=== PATIENT | male | born 1970 | race Caucasian/White ===

== ENCOUNTER → 2020-01-31 | Outpatient (CLI) | payer OTHER | LOC: M.ULTRA 09:45 | PROVIDERS: ATTEND Nurse Practitioner Family | DX: K62.3 Rectal prolapse (principal); N43.2 Other hydrocele ==

== ENCOUNTER → 2020-03-12 | Outpatient (CLI) | payer OTHER ==
[2020-03-12 08:35] LABS: CALCIUM 8.9 mg/dL (8.5-10.1); POTASSIUM 5.1 mmol/L (3.5-5.1)
[2020-03-12 08:40] LABS: ALBUMIN 3.6 g/dL (3.4-5.0); TOTAL BILIRUBIN 0.4 mg/dL (<0.1-1.0); TOTAL PROTEIN 7.5 g/dL (6.4-8.2)
== END ==
LOC: M.LAB 02-01 10:48
PROVIDERS: ATTEND Nurse Practitioner Family
DX: K57.30 Diverticulosis of large intestine without perforation or abscess without bleeding (principal); K83.8 Other specified diseases of biliary tract; N43.3 Hydrocele, unspecified